=== PATIENT | male | born 2000 | race Hispanic/Latino ===

== ENCOUNTER 2023-03-29 09:55 | Day surgery (SDC) | payer OTHER ==
[~2023-03-29] VITALS: Ht 175.3 cm; Wt 68.5 kg
[~2023-03-29 09:55] MED LIST: CETI10TA57 PO; ESCI5TAB16 PO; ESTR2TAB25 PO; FAMO20TA8 PO; SPIR100T5 PO; VITAD50000 PO
[2023-03-29 10:22] VITALS: BP 106/64
[2023-03-29] MEDS ORDERED: 0.9%NACL 1000ML 1,000 ML IV ONE (10:35)
[2023-03-29] MEDS ORDERED: LIDOCAINE HCL 1% 20 ML VIAL ONE (11:59)
[2023-03-29] MEDS ORDERED: PROPOFOL 10 MG/ML 20ML VIAL IV ONE ×3 (11:59→12:15)
[2023-03-29] MEDS ORDERED: FENTANYL CITRATE PF 50 MCG/1 ML 2ML VIAL ONE (12:07)
== END 2023-03-29 13:15 | disposition home or self-care (01) ==
LOC: DAH 09:55
PROVIDERS: ATTEND Internal Medicine Gastroenterology
DX: R19.7 Diarrhea, unspecified (principal); Z20.822 Contact with and (suspected) exposure to COVID-19; K59.00 Constipation, unspecified; R10.12 Left upper quadrant pain; R10.30 Lower abdominal pain, unspecified; R63.4 Abnormal weight loss; K31.89 Other diseases of stomach and duodenum; K21.00 Gastro-esophageal reflux disease with esophagitis, without bleeding; K63.89 Other specified diseases of intestine; K62.89 Other specified diseases of anus and rectum; K44.9 Diaphragmatic hernia without obstruction or gangrene; K29.00 Acute gastritis without bleeding; K64.0 First degree hemorrhoids; R14.0 Abdominal distension (gaseous); E78.5 Hyperlipidemia, unspecified; F41.9 Anxiety disorder, unspecified; F32.A Depression, unspecified; Z86.16 Personal history of COVID-19; Z82.49 Family history of ischemic heart disease and other diseases of the circulatory system; Z83.3 Family history of diabetes mellitus; Z68.22 Body mass index [BMI] 22.0-22.9, adult; Z79.899 Other long term (current) drug therapy; Z79.01 Long term (current) use of anticoagulants
CPT/HCPCS: 87635; 43239; 45380; C9803; J3010; J7030 ×2; J2704 ×3; A4620; A4215 ×2; A4223; A4657; A7002; A4222; A4221; A4663; A4606